=== PATIENT | female | born 1980 | race Asian ===

== ENCOUNTER 2017-01-07 16:13 | Emergency (ER) | payer OTHER, BC ==
[~2017-01-07] VITALS: Ht 154.9 cm; Wt 60.0 kg
[2017-01-07 16:17] VITALS: BP 138/64; PULSE 104; RESP 16; TEMP 98.2; O2SAT 98
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
[2017-01-07] MEDS ORDERED: KETOROLAC TROMETHAMINE 60 MG/2 ML (IM) VIAL IM ONE (17:15)
[2017-01-07] MEDS ORDERED: ORPHENADRINE INJ 60 MG/2 ML AMP IM ONE (17:15)
[2017-01-07] MEDS ORDERED: IBUP800T23 PO (18:02)
[2017-01-07] MEDS ORDERED: CYCL5TAB PO (18:02)
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
== END 2017-01-07 19:18 | disposition home or self-care (01) ==
LOC: NETRI 16:13
DX: S20.211A Contusion of right front wall of thorax, initial encounter (principal); V43.52XA Car driver injured in collision with other type car in traffic accident, initial encounter; Y93.9 Activity, unspecified; Y92.9 Unspecified place or not applicable; Y99.9 Unspecified external cause status
CPT/HCPCS: 71111; 96372; 99284; J1885; J2360